=== PATIENT | female | born 1965 | race Caucasian/White ===

== ENCOUNTER 2024-10-11 13:26 | Inpatient (IN) | payer OTHER ==
[~2024-10-11] VITALS: Ht 180.3 cm; Wt 124.1 kg
[2024-10-11 15:52] LABS: BASOPHILS % (AUTO) 1.3 % (0.0-2.0); EOSINOPHILS % (AUTO) 2.2 % (1.0-6.0); HEMATOCRIT 38.2 % (36-46); LYMPHOCYTES # (AUTO) 1.7 K/uL (1.0-4.8); LYMPHOCYTES % (AUTO) 30.9 % (22.0-44.0); MEAN CORPUSCULAR HEMOGLOBIN 31.6 pg (26.0-34.0); MEAN CORPUSCULAR HGB CONC 34.2 G/dL (31.0-37.0); MEAN CORPUSCULAR VOLUME 93 fL (80-100); MONOCYTES # (AUTO) 0.6 K/uL (0.1-1.0); MONOCYTES % (AUTO) 11.5 % (2.0-9.0); NEUTROPHILS % (AUTO) 54.1 % (40.0-70.0); PLATELET COUNT (AUTO) 311 K/uL (150-450); RED BLOOD CELL COUNT(AUTO) 4.12 MIL/uL (4.00-5.20); WHITE BLOOD COUNT (AUTO) 5.6 K/uL (4.5-11.0)
[2024-10-11 15:56] LABS: ANION GAP 11 mmol/L (8-16); CARBON DIOXIDE 26 mmol/L (22-29); CHLORIDE 107 mmol/L (98-107); CREATININE 0.86 mg/dL (0.60-1.30); GLOMERULAR FILTR. RATE CALC > 60 mL/min (>60); GLUCOSE,RANDOM 84 mg/dL (70-110); POTASSIUM 3.7 mmol/L (3.5-5.1); SODIUM SERUM 144 mmol/L (136-145); UREA NITROGEN, BLOOD 9 mg/dL (7-18)
[2024-10-11 16:00] LABS: ALBUMIN 2.8 g/dL (3.4-5.0); BILIRUBIN,DIRECT 0.1 mg/dL (0.00-0.20); BILIRUBIN,TOTAL 0.4 mg/dL (0.1-1.0); TOTAL PROTEIN, SERUM 8.2 g/dL (6.4-8.2)
[2024-10-11 16:04] LABS: TROPONIN I-HIGH SENSITIVITY 40 ng/L (<51)
[2024-10-12] MEDS ORDERED: ONDANSETRON HCL 4 MG/2 ML VIAL IVP PRN (01:30)
[2024-10-12] MEDS ORDERED: HydrOXYzine PAMOATE 25 MG CAPSULE PO PRN (01:45)
[2024-10-12 03:30] VITALS: BP 113/60; PULSE 66; RESP 18; TEMP 98.7; O2SAT 96
[2024-10-12 05:29] LABS: PH,URINE DRUG SCREEN 6.5 (5.0-8.0)
[2024-10-12 05:36] LABS: BENZODIAZEPINES SCREEN,URINE POSITIVE (NEGATIVE); CANNABINOID SCREEN,URINE NEGATIVE (NEGATIVE); COCAINE SCREEN,URINE NEGATIVE (NEGATIVE); METHADONE SCREEN, URINE NEGATIVE (NEGATIVE); OPIATE SCREEN,URINE NEGATIVE (NEGATIVE); PHENCYCLIDINE SCREEN,URINE NEGATIVE (NEGATIVE)
[2024-10-12 05:51] LABS: ALCOHOL, URINE DRUG SCREEN NEGATIVE (NEGATIVE); AMPHET/METH SCREEN,URINE POSITIVE (NEGATIVE); BARBITURATE SCREEN, URINE NEGATIVE (NEGATIVE)
[2024-10-12 08:30] VITALS: BP 105/55; PULSE 85; RESP 16; TEMP 98.1; O2SAT 98
[2024-10-12] MEDS: HEPARIN SODIUM,PORCINE 5,000 UNITS/ML VIAL SQ SCH (08:41)
[2024-10-12] MEDS: DOCUSATE SODIUM 100 MG CAPSULE PO SCH (08:41)
[2024-10-12] MEDS: LORazepam 0.5 MG TABLET PO SCH (08:41)
[2024-10-12] MEDS: LevETIRAcetam 500 MG TABLET PO SCH (09:17)
[2024-10-12] MEDS: GABAPENTIN 300 MG CAPSULE PO SCH (09:17)
[2024-10-12] MEDS ORDERED: TOPI-258 PO ×2 (09:23→11:03)
[2024-10-12] MEDS ORDERED: DULO60CA98 PO ×2 (09:23→11:03)
[2024-10-12] MEDS ORDERED: ALPR-709 PO (09:23)
[2024-10-12] MEDS ORDERED: LEVE-71 PO ×2 (09:23→11:03)
[2024-10-12] MEDS ORDERED: GABA-1181 PO ×3 (09:23→11:03)
[2024-10-12] MEDS ORDERED: QUET100T PO (11:03)
[2024-10-12] MEDS ORDERED: CEVI30CA12 PO (11:03)
[2024-10-12] MEDS ORDERED: PRAM0.259 PO (11:03)
[2024-10-12] MEDS: TOPIRAMATE 100 MG TABLET PO SCH (11:10)
[2024-10-12] MEDS: DULoxetine HCL 60 MG CAPSULE PO SCH (11:10)
[2024-10-12 16:09] VITALS: BP 99/74; PULSE 74; RESP 18; TEMP 97.8; O2SAT 95
[2024-10-12 19:36] VITALS: BP 96/58; PULSE 72; RESP 18; TEMP 98.1; O2SAT 94
[2024-10-13 04:57] VITALS: BP 98/60; PULSE 94; RESP 18; TEMP 98.3; O2SAT 94
[2024-10-13 07:30] VITALS: BP 101/60; PULSE 65; RESP 18; TEMP 98.2; O2SAT 97
[2024-10-13 07:54] LABS: BASOPHILS % (AUTO) 1.1 % (0.0-2.0); EOSINOPHILS % (AUTO) 3.3 % (1.0-6.0); LYMPHOCYTES # (AUTO) 1.9 K/uL (1.0-4.8); LYMPHOCYTES % (AUTO) 40.7 % (22.0-44.0); MEAN CORPUSCULAR HEMOGLOBIN 31.7 pg (26.0-34.0); MEAN CORPUSCULAR HGB CONC 34.1 G/dL (31.0-37.0); MEAN CORPUSCULAR VOLUME 93 fL (80-100); MONOCYTES # (AUTO) 0.6 K/uL (0.1-1.0); MONOCYTES % (AUTO) 12.3 % (2.0-9.0); NEUTROPHILS % (AUTO) 42.6 % (40.0-70.0); PLATELET COUNT (AUTO) 337 K/uL (150-450); RED BLOOD CELL COUNT(AUTO) 4.09 MIL/uL (4.00-5.20); RED CELL DISTRIBUTION WIDTH 12.9 % (11.5-14.5); WHITE BLOOD COUNT (AUTO) 4.7 K/uL (4.5-11.0)
[2024-10-13] MEDS: LORazepam 0.5 MG TABLET PO SCH (09:48)
[2024-10-13 11:51] LABS: ANION GAP 10 mmol/L (8-16); CALCIUM, TOTAL 9.3 mg/dL (8.8-10.5); CARBON DIOXIDE 24 mmol/L (22-29); CHLORIDE 105 mmol/L (98-107); CREATININE 0.89 mg/dL (0.60-1.30); GLOMERULAR FILTR. RATE CALC > 60 mL/min (>60); GLUCOSE,RANDOM 109 mg/dL (70-110); POTASSIUM 3.9 mmol/L (3.5-5.1); SODIUM SERUM 139 mmol/L (136-145); UREA NITROGEN, BLOOD 11 mg/dL (7-18)
[2024-10-13 12:00] VITALS: BP 107/61; PULSE 72; RESP 18; TEMP 97.9; O2SAT 99
[2024-10-13] MEDS: CONTAINER EMPTY IV SCH (19:25)
[2024-10-13] MEDS: IGA AVG IV SCH (19:25)
[2024-10-13] MEDS: IMMUNE GLOBUL IV SCH (19:25)
[2024-10-13] MEDS: GLY IV SCH (19:25)
[2024-10-13] MEDS: DiphenhydrAMINE HCL 25 MG CAPSULE PO ONE (19:26)
[2024-10-13] MEDS: MethylPREDNISolone SOD SUCC 40 MG/ML VIAL IVP SCH (19:26)
[2024-10-13] MEDS: ACETAMINOPHEN 325 MG TABLET PO PRN (19:26)
[2024-10-13 19:33] VITALS: BP 102/70; PULSE 72; RESP 18; TEMP 98.2; O2SAT 96
[2024-10-13] MEDS: SODIUM CHLORIDE 0.9% 250 ML IV SCH (21:43)
[2024-10-14 03:55] VITALS: BP 107/65; PULSE 70; RESP 18; TEMP 97.9; O2SAT 96
[2024-10-14 07:41] VITALS: BP 112/68; PULSE 75; RESP 18; TEMP 98.2; O2SAT 98
[2024-10-14] MEDS ORDERED: DiphenhydrAMINE HCL 25 MG CAPSULE PO SCH (15:00)
[2024-10-14 19:28] VITALS: BP 108/70; PULSE 67; RESP 18; TEMP 97.9; O2SAT 98
[2024-10-14] MEDS: DiphenhydrAMINE HCL 25 MG CAPSULE PO SCH (20:20)
[2024-10-14] MEDS: MethylPREDNISolone SOD SUCC 40 MG/ML VIAL IVP SCH (20:20)
[2024-10-15 04:40] VITALS: BP 119/73; PULSE 70; RESP 18; TEMP 97.7; O2SAT 94
[2024-10-15 08:34] VITALS: BP 108/60; PULSE 72; RESP 20; TEMP 97.7; O2SAT 95
[2024-10-15] MEDS: HydrOXYzine PAMOATE 50 MG CAPSULE PO PRN (14:21)
[2024-10-15 19:23] VITALS: BP 117/60; PULSE 65; RESP 18; TEMP 98.1; O2SAT 95
[2024-10-16 05:10] VITALS: BP 111/69; PULSE 63; RESP 18; TEMP 97.9; O2SAT 95
[2024-10-16 15:19] VITALS: BP 108/72; PULSE 75; RESP 18; TEMP 98.2; O2SAT 97
[2024-10-16 20:57] VITALS: BP 102/61; PULSE 68; RESP 18; TEMP 98.1; O2SAT 95
[2024-10-17 04:00] VITALS: BP 104/67; PULSE 61; RESP 20; TEMP 97.7; O2SAT 95
[2024-10-17 08:43] VITALS: BP 113/61; PULSE 73; RESP 18; TEMP 97.7; O2SAT 95
[2024-10-17 20:02] VITALS: BP 101/60; PULSE 68; RESP 18; TEMP 97.9; O2SAT 100
[2024-10-17] MEDS: SUMAtriptan SUCCINATE 25 MG TABLET PO ONE (22:10)
[2024-10-18 04:36] VITALS: BP 113/80; PULSE 62; RESP 18; TEMP 97.9; O2SAT 96
[2024-10-18 08:55] VITALS: BP 105/66; PULSE 67; RESP 18; TEMP 97.7; O2SAT 96
[2024-10-18] MEDS ORDERED: GABA-1404 PO (12:49)
[2024-10-18] MEDS ORDERED: TOPI-258 PO (12:51)
[2024-10-18] MEDS ORDERED: LEVE100023 PO (12:52)
== END 2024-10-18 15:35 | DRG 95 ==
LOC: EMS 13:28 → EDH 10-12 01:18 → 6N 10-12 03:21
PROVIDERS: ADMIT Internal Medicine; ATTEND Internal Medicine
DX: G61.0 Guillain-Barre syndrome (principal); G61.81 Chronic inflammatory demyelinating polyneuritis; G40.909 Epilepsy, unspecified, not intractable, without status epilepticus; F32.A Depression, unspecified; R20.9 Unspecified disturbances of skin sensation; F17.200 Nicotine dependence, unspecified, uncomplicated; E66.01 Morbid (severe) obesity due to excess calories; F15.90 Other stimulant use, unspecified, uncomplicated; F13.90 Sedative, hypnotic, or anxiolytic use, unspecified, uncomplicated; F41.9 Anxiety disorder, unspecified; G43.909 Migraine, unspecified, not intractable, without status migrainosus; J44.9 Chronic obstructive pulmonary disease, unspecified; Z71.6 Tobacco abuse counseling; Z79.899 Other long term (current) drug therapy; Z88.2 Allergy status to sulfonamides; Z68.38 Body mass index [BMI] 38.0-38.9, adult
CPT/HCPCS: 36245; 36569; 76937; 80048; 80076; 80307; 83735; 84484; 84703; 85025; 93005; 97116; 97161; 97165; 97535; 99285; J1459; J1644; J7050